=== PATIENT | male | born 1980 | race Caucasian/White ===

== ENCOUNTER 2017-05-05 23:42 | Emergency (ER) | payer SELFPAY ==
[~2017-05-05] VITALS: Ht 182.9 cm; Wt 95.3 kg
[~2017-05-05 23:42] MED LIST: CEPH-569 PO; SULF1TAB47 PO
--- NOTE | 2017-05-06 00:10 | NUR ---
PT BB SELF FROM HOME WITH C/O OF L KNEE PAIN X 1 DAY. PT STATES KNEE INJURY IS CHRONIC IN NATURE BUT "TODAY WAS MUCH WORSE AND I COULDNT HANDLE IT." PT STATES PAIN LEVEL 7/10. PT IS AAOX4. RESP EVEN AND NONE LABORED. SKIN PINK AND WARM TO TOUCH. VSS. DENISE GAMING BEDSIDE FOR EVAL.
--- NOTE | 2017-05-06 00:15 | NUR ---
CALL LIGHT PLACED WITHIN REACH. BED PLACED IN LOWEST POSITION. SIDE RAILS RAISED.
[2017-05-06] MEDS ORDERED: HYDROCODONE/APAP 5/325MG 1 EACH TABLET ONE (00:20)
[2017-05-06] MEDS: HYDROCODONE/APAP 5/325MG 1 EACH TABLET PO ONE (00:21)
--- NOTE | 2017-05-06 01:58 | NUR ---
ct result received. maria r guo aware. pending disposition.
--- NOTE | 2017-05-06 02:20 | NUR ---
started sl 18g to l forearm, blood ddrawn and sent to lab.
[2017-05-06 02:31] LABS: BASOPHILS # (AUTO) 0.1 /CMM (0.0-0.2); BASOPHILS % (AUTO) 0.6 % (0.0-2.0); EOSINOPHILS # (AUTO) 0.4 /CMM (0.0-0.7); EOSINOPHILS % (AUTO) 4.5 % (0.0-6.0); HEMATOCRIT 50 % (39-51); HEMOGLOBIN 17.3 g/dL (13.5-17.5); LYMPHOCYTES # (AUTO) 1.8 /CMM (0.8-4.8); LYMPHOCYTES % (AUTO) 20.4 % (20.0-44.0); MEAN CORPUSCULAR HEMOGLOBIN 32 PG (26.0-33.0); MEAN CORPUSCULAR HGB CONC 35 g/dl (31.0-36.0); MEAN CORPUSCULAR VOLUME 93 fL (80-96); MONOCYTES # (AUTO) 0.8 /CMM (0.1-1.30); NEUTROPHILS # (AUTO) 5.8 /CMM (1.8-8.9); NEUTROPHILS % (AUTO) 65.5 % (43.0-81.0); PLATELET COUNT (AUTO) 204 /CMM (150-450); RDW COEFFICIENT OF VARIATION 13.1 (11.5-15.0); RED BLOOD CELL COUNT(AUTO) 5.32 MIL/uL (4.5-6.0); WHITE BLOOD COUNT (AUTO) 8.8 K/uL (4.3-11.0)
[2017-05-06] MEDS ORDERED: VANCOMYCIN 1 GM VIAL ONE (02:31)
[2017-05-06] MEDS ORDERED: CEFTRIAXONE 1GM BAG (ER ONLY) 50 ML IV ONE (02:31)
[2017-05-06] MEDS: CEFTRIAXONE 1GM BAG (ER ONLY) 1 GM/50 ML PIGGYBACK IV ONE (02:38)
[2017-05-06 02:43] LABS: CALCIUM, SERUM 9.8 mg/dL (8.5-10.1); CREATININE 1.2 mg/dL (0.6-1.3); POTASSIUM 3.9 mmol/L (3.5-5.1)
[2017-05-06 02:55] LABS: INR 0.91 (0.87-1.13)
[2017-05-06 03:00] LABS: ALBUMIN 4.1 g/dL (3.4-5.0); BILIRUBIN,TOTAL 0.6 mg/dL (0.2-1.0)
[2017-05-06] MEDS: VANCOMYCIN 1 GM in IV D5W 250 ML IV ONE (03:00)
[2017-05-06 03:01] LABS: TOTAL PROTEIN, SERUM 8.7 g/dL (6.4-8.2)
--- NOTE | 2017-05-06 03:09 | NUR ---
pt resting quielty, no acute distress noted, resp even and unlabored. call light within reach. will continue to monitor pt closely.
[2017-05-06 03:59] VITALS: BP 129/79
--- NOTE | 2017-05-06 04:31 | NUR ---
Patient discharged to home in stable condition. Written and verbal after care instructions given. Patient verbalizes understanding of instruction.IV removed. Catheter intact and site benign. Pressure and 4x4 applied to site. No bleeding noted.VSS upon discharge. pt ambulated with cruthces out of ER, steady gait noted.
== END 2017-05-06 04:33 | disposition home or self-care (01) ==
LOC: ER 23:42
DX: M25.572 Pain in left ankle and joints of left foot (principal)
CPT/HCPCS: 36415; 73610-TC; 73700-TC; 80053-TC; 85025-TC; 85730-TC; A4606; J0696; J3370; Z7610

== ENCOUNTER 2018-07-20 17:57 | Emergency (ER) | payer SELFPAY ==
[~2018-07-20] VITALS: Ht 180.3 cm; Wt 90.7 kg
[2018-07-20 18:30] VITALS: BP 139/75
--- NOTE | 2018-07-20 18:45 | NUR ---
Patient discharged to home in stable condition. Written and verbal after care instructions given. Patient verbalizes understanding of instruction.
== END 2018-07-20 18:44 | disposition home or self-care (01) ==
LOC: ER 17:57
DX: R21 Rash and other nonspecific skin eruption (principal)

== ENCOUNTER 2023-07-06 12:38 | Emergency (ER) | payer MEDICAID ==
[~2023-07-06] VITALS: Ht 180.3 cm; Wt 90.7 kg
[2023-07-06] MEDS ORDERED: CEPH500C2 PO (15:22)
[2023-07-06] MEDS ORDERED: SULF1TAB48 PO (15:22)
[2023-07-06] MEDS ORDERED: IBUP-1955 PO (15:23)
[2023-07-06 17:56] VITALS: BP 138/72; TEMP 98.4; O2SAT 100
== END 2023-07-06 17:56 | disposition home or self-care (01) ==
LOC: ER 12:49
DX: L03.115 Cellulitis of right lower limb (principal); Z79.899 Other long term (current) drug therapy
CPT/HCPCS: 73610-TC; 73620-TC; 93971-TC

== ENCOUNTER 2023-12-14 12:37 | Emergency (ER) | payer MEDICAID ==
[~2023-12-14] VITALS: Ht 182.9 cm; Wt 95.3 kg
[~2023-12-14 12:37] MED LIST changes: +CEPH500C2 PO; +IBUP-1955 PO; +SULF1TAB48 PO
[2023-12-14 12:40] VITALS: BP 139/94; TEMP 98.3
[2023-12-14] MEDS ORDERED: SULF1TAB48 PO (15:22)
[2023-12-14] MEDS ORDERED: NAPR-1164 PO (15:22)
[2023-12-14] MEDS ORDERED: CEPH500C2 PO (15:22)
[2023-12-14] MEDS ORDERED: HYDR-4303 PO ×2 (15:22→17:48)
[2023-12-14 15:41] VITALS: O2SAT 98
[2023-12-14] MEDS ORDERED: HYDR-4209 PO (22:36)
[2023-12-15] MEDS ORDERED: HYDR-4209 PO (09:57)
== END 2023-12-14 15:41 | disposition home or self-care (01) ==
LOC: ER 12:42
DX: L03.116 Cellulitis of left lower limb (principal); M25.572 Pain in left ankle and joints of left foot; M79.89 Other specified soft tissue disorders
CPT/HCPCS: 73610-TC; 73630-TC